=== PATIENT | male | born 1985 | race Caucasian/White ===

== ENCOUNTER 2020-03-20 18:23 | Emergency (ER) | payer OTHER ==
[~2020-03-20] VITALS: Ht 177.8 cm; Wt 63.6 kg
[2020-03-20 18:26] VITALS: BP 136/71
--- NOTE | 2020-03-20 19:53 | NUR ---
PATIENT IN ROOM ON CELL PHONE COVERSING WITH WHAT APPEARS TO BE A FRIEND LAUGHING AND TALKING, NO OBSERVABLE S/S OF ACUTE STRESS OR DECREASED LOC AT THIS TIME DENIES N,V WILL CONTINUE TO MONITOR
[2020-03-20] MEDS ORDERED: CYCL-1 PO (19:58)
== END 2020-03-20 20:08 | disposition home or self-care (01) ==
LOC: ER 18:24
DX: S13.4XXA Sprain of ligaments of cervical spine, initial encounter (principal); R51.9 Headache, unspecified; M54.2 Cervicalgia; Z79.899 Other long term (current) drug therapy; V87.7XXA Person injured in collision between other specified motor vehicles (traffic), initial encounter; Y93.89 Activity, other specified; Y92.89 Other specified places as the place of occurrence of the external cause; Y99.8 Other external cause status
CPT/HCPCS: 72040; 99283